=== PATIENT | female | born 1990 | race Caucasian/White ===

== ENCOUNTER 2021-11-03 04:03 | Emergency (ER) | payer BC, OTHER ==
[2021-11-03 04:18] VITALS: PULSE 134
[2021-11-03] MEDS ORDERED: Ketorolac 15 MG/ML SDV IVPUSH ONE (04:25)
[2021-11-03] MEDS ORDERED: Lactated Ringers 1,000 ML IV ONE ×2 (04:25→05:42)
[2021-11-03 05:10] LABS: CORONAVIRUS COVID-19 NAA NEGATIVE (NEGATIVE)
[2021-11-03 07:02] VITALS: BP 137/87
== END 2021-11-03 06:55 | disposition home or self-care (01) ==
LOC: JD.ED 04:03
DX: J10.1 Influenza due to other identified influenza virus with other respiratory manifestations (principal); I10 Essential (primary) hypertension; R94.31 Abnormal electrocardiogram [ECG] [EKG]; E66.9 Obesity, unspecified; Z68.43 Body mass index [BMI] 50.0-59.9, adult; Z88.0 Allergy status to penicillin; Z20.822 Contact with and (suspected) exposure to COVID-19
CPT/HCPCS: 0241U; 36415; 71045; 80053; 84484; 85025; 85379; 85610; 93005; 96374; 99285; J1885; J7120